=== PATIENT | female | born 1925 | race Caucasian/White ===

== ENCOUNTER → 2016-04-19 | Outpatient (CLI) | payer MEDICARE | END | disposition home or self-care (01) | LOC: NC 09:50 | PROVIDERS: ATTEND Family Medicine | DX: J44.9 Chronic obstructive pulmonary disease, unspecified (principal); I12.9 Hypertensive chronic kidney disease with stage 1 through stage 4 chronic kidney disease, or unspecified chronic kidney disease; N18.3 Chronic kidney disease, stage 3 (moderate) ==

== ENCOUNTER 2016-04-25 09:54 | Emergency (ER) | payer MEDICARE ==
--- NOTE | 2016-04-25 10:17 | ED.PDOC ---
History of Present Illness - General Chief Complaint: Respiratory Problem Stated Complaint: Fatigue/SOB Time Seen by Provider: 04/25/16 10:01 Source: patient, RN notes reviewed, Vital Signs reviewed, family Exam Limitations: no limitations - History of Present Illness Comments: Patient has not felt well for the past 2 weeks. Started with some chest heaviness and URI symptoms. 1 week ago she was seen in clinic and started on a Z -pack. Reports no change or improvement. This morning she had some right upper chest pain so her daughter brought her in to be evaluated. Lots of fatigue and poor PO intake. Dry cough with rare production of sputum. Dyspnea on exertion. Timing/Duration: constant - for past 2 weeks. Cough Quality/Degree: mild, dry cough Possible Cause: occasional episodes Improving Factors: rest Worsening Factors: movement Associated Symptoms: chest pain/soreness, cough, shortness of breath Respiratory Risk Factors: no cause identified Allergies/Adverse Reactions: Allergies NO KNOWN ALLERGY Allergy (Verified 10/30/15 19:48) Home Medications: Ambulatory Orders Aspirin 81 mg PO DAILY #0 08/30/12 Calcium Carbonate-Vitamin D [Calcium 600 + D 600-400 mg-Unit] 600 mg PO DAILY # 0 08/30/12 Furosemide [Lasix] 20 mg PO DAILY #30 tab 08/30/12 Lisinopril 10 mg PO DAILY #0 08/30/12 Potassium Chloride Tab [Slow-K] 8 meq PO DAILY #30 tab 08/30/12 Simvastatin 20 mg PO DAILY #0 08/30/12 ALPRAZolam [Xanax] 0.5 mg PO Q8H PRN 10/10/14 Alendronate Sodium [Fosamax] 70 mg PO WKLY 10/10/14 Budesonide Inhaler [Pulmicort Flexhaler] 2 puff INH DAILY 10/10/14 Multiple Vitamins W/ Minerals [Centrum Silver] 1 tab PO DAILY 11/08/14 Citalopram Hydrobromide [Celexa] 40 mg PO DAILY 06/02/15 Levofloxacin [Levaquin] 500 mg PO DAILY #6 tab 04/25/16 Review of Systems - Review of Systems Constitutional: States: malaise, weakness. Denies: chills, fever EENTM: States: no symptoms reported Respiratory: States: cough, short of breath, other - CARRERA. Denies: wheezing Cardiology: States: chest pain. Denies: edema, palpitations, syncope Gastrointestinal/Abdominal: States: no symptoms reported. Denies: abdominal pain, diarrhea, nausea, vomiting Musculoskeletal: States: no symptoms reported Skin: States: no symptoms reported Neurological: States: no symptoms reported Endocrine: States: no symptoms reported Past Medical History (General) - Patient Medical History Hx Seizures: No Hx Stroke: No Hx Dementia: Yes Hx Asthma: Yes Hx of COPD: Yes Hx Cardiac Disorders: Yes - Sees Dr. Veloz Hx Congestive Heart Failure: No Hx Pacemaker: No Hx Hypertension: Yes Hx Thyroid Disease: Yes - parathyroid Hx Diabetes: No Hx MRSA: No - Vaccination History Hx Tetanus, Diphtheria Vaccination: - unknown Hx Influenza Vaccination: Yes Hx Pneumococcal Vaccination: No - Social History Hx Tobacco Use: No Hx Alcohol Use: No Hx Substance Use: No Hx Substance Use Treatment: No Hx Depression: No Hx Physical Abuse: No Hx Emotional Abuse: No - Female History Patient : No Family Medical History - Family History Mother Family History: Unknown Living Status: Hx Cardiac Disease: Yes Physical Exam - Physical Exam General Appearance: Alert, Frail, No apparent distress Eye Exam: bilateral normal Neck: non-tender, full range of motion, supple, lymphadenopathy (R), lymphadenopathy (L) Respiratory: chest non-tender, decreased breath sounds Cardiovascular/Chest: regular rate, rhythm, no edema, no gallop, no JVD, no murmur Gastrointestinal/Abdominal: normal bowel sounds, non tender, soft, no organomegaly, no pulsatile mass Extremity: normal range of motion Neurologic: no motor/sensory deficits, alert, normal mood/affect, oriented x 3 Skin Exam: normal color, warm/dry Progress - Progress Progress: 04/25/16 12:16 Discussed essentially normal results with patient. She does have a slightly elevated WBC count and chest CT showed possible early RLL infiltrate. Will start a broader spectrum antibiotic and have follow up with PCP. Discussed that a lot of her inability/slow recovery may be due to her poor PO intake. Encouraged 2 Boost or Ensure shakes/day. Increase calories and fat in diet. - Results/Orders Results/Orders: Laboratory Tests 04/25/16 04/25/16 09:20 10:20 WBC 12.5 H RBC 4.82 Hgb 13.8 Hct 42.7 MCV 88.6 MCH 28.6 MCHC 32.3 L RDW 14.5 Plt Count 373 MPV 8.2 Absolute Neuts (auto) 9.30 H Absolute Lymphs (auto) 1.60 Absolute Monos (auto) 1.20 H Absolute Eos (auto) 0.10 Absolute Basos (auto) 0.10 Neutrophils % 74.9 Lymphocytes % 13.1 L Monocytes % 9.8 H Eosinophils % 1.0 Basophils % 1.2 D-Dimer, Quantitative 259 H* Sodium 138 Potassium 4.8 Chloride 101 Carbon Dioxide 29 Anion Gap 12.8 BUN 30 H Creatinine 1.05 BUN/Creatinine Ratio 28.6 H Random Glucose 107 H Serum Osmolality 282.3 Calcium 9.9 Total Bilirubin 0.7 AST 31 ALT 10 Alkaline Phosphatase 74 Creatine Kinase 33 CK-MB (CK-2) 1.4 CK-MB (CK-2) % Not Reportable Troponin I < 0.02 Serum Total Protein 7.7 Albumin 4.0 Globulin 3.7 H Albumin/Globulin Ratio 1.1 - EKG/XRAY/CT EKG: Sinus - Junctional Rhythm, no ST T wave changes, Unchanged from - 05/2015 Comments: No acute changes noted CT Ordered: Yes CT Interpretation Call Back: - No PE, pos. early infiltrate RLL Departure - Departure Clinical Impression: Cough, Fatigue Time of Disposition: 12:19 Disposition: Discharge to Home or Self Care Condition: Good Instructions: DI for Weight Loss, DI for Cough -- Adult Diet: other - Increase caloric intake Activity: increase activity as tolerated Referrals: Loco Sullivan MD [Primary Care Provider] - 1-2 Days Prescriptions: Levofloxacin [Levaquin] 500 mg PO DAILY #6 tab Home Medications: Ambulatory Orders Aspirin 81 mg PO DAILY #0 08/30/12 Calcium Carbonate-Vitamin D [Calcium 600 + D 600-400 mg-Unit] 600 mg PO DAILY # 0 08/30/12 Furosemide [Lasix] 20 mg PO DAILY #30 tab 08/30/12 Lisinopril 10 mg PO DAILY #0 08/30/12 Potassium Chloride Tab [Slow-K] 8 meq PO DAILY #30 tab 08/30/12 Simvastatin 20 mg PO DAILY #0 08/30/12 ALPRAZolam [Xanax] 0.5 mg PO Q8H PRN 10/10/14 Alendronate Sodium [Fosamax] 70 mg PO WKLY 10/10/14 Budesonide Inhaler [Pulmicort Flexhaler] 2 puff INH DAILY 10/10/14 Multiple Vitamins W/ Minerals [Centrum Silver] 1 tab PO DAILY 11/08/14 Citalopram Hydrobromide [Celexa] 40 mg PO DAILY 06/02/15 Levofloxacin [Levaquin] 500 mg PO DAILY #6 tab 04/25/16
--- NOTE | 2016-04-25 10:46 | RAD ---
EXAM DESCRIPTION: XR CHEST 2 VIEWS CLINICAL HISTORY: cough/fatigue/SOB COMPARISON: June 02, 2015 FINDINGS: Two-view chest x-ray shows cardiac silhouette to be enlarged without pulmonary vascular congestion. Mild tortuosity of the thoracic aorta. Large retrocardiac hiatal hernia and air-fluid level is again seen. The lungs are hyperinflated. No acute appearing infiltrate or consolidation is seen. Costophrenic angles are sharp. Levocurvature of the thoracolumbar junction is seen. Osseous structures are diffusely osteopenic. IMPRESSION: No radiographic evidence of acute cardiopulmonary disease in this emphysematous, senescent chest. No interval change. Large retrocardiac hiatal hernia. Electronically signed by: Sen Boyd MD 04/25/2016 10:44
--- NOTE | 2016-04-25 12:09 | CT ---
EXAM DESCRIPTION: CTA Chest CLINICAL HISTORY: CP/SOB/elevated D Dimer - r/o PE COMPARISON: None. TECHNIQUE: Postcontrast CT images of the chest are obtained using pulmonary embolism protocol. 3-D reconstructed images of the arterial vasculature are performed. CT scan done according to ALARA (As Low As Reasonably Achievable). FINDINGS: The heart is enlarged. Ascending thoracic aorta is mildly dilated measuring 4.2 cm. Scattered calcified plaque is seen. No aortic dissection. There is mild reflux of contrast into the hepatic veins. No filling defect or emboli are seen in the pulmonary arteries. No pathologically enlarged mediastinal, hilar, or axillary lymphadenopathy is seen. Lungs are normally aerated. Trace right pleural effusion is seen. Focal area of nodular parenchymal thickening in the right lung base measuring 12 x 16 mm seen. Pleural-based noncalcified 9 mm pulmonary nodule in the right lung base is also seen more laterally. Visualized upper abdomen shows no acute findings. Calcifications of the spleen is seen. Large retrocardiac hiatal hernia is noted. Mild disc degenerative changes of the spine are seen with moderate scoliosis. IMPRESSION: No radiographic evidence of pulmonary embolism. Large retrocardiac hiatal hernia seen. Mild aneurysmal dilatation of the ascending thoracic aorta measures 4.2 cm. Consider yearly imaging follow-up. Two focal areas of nodular parenchymal thickening in the right lower lobe are seen. This could represent developing infiltrates. Pulmonary nodules are consideration. Recommend follow-up CT imaging in 4-6 weeks. Electronically signed by: Sen Boyd MD 04/25/2016 12:08 PM INSPECTION MANAGER
[2016-04-25] MEDS ORDERED: levoFLOXacin 500 MG TAB PO ONE (12:16)
[2016-04-25] MEDS ORDERED: levoFLOXacin 500 MG TAB ONE (12:17)
[2016-04-25 12:38] VITALS: BP 124/68; TEMP 98.4; O2SAT 99
== END 2016-04-25 12:37 | disposition home or self-care (01) ==
LOC: ER 09:54
DX: R05 Cough (principal); R53.83 Other fatigue; J44.9 Chronic obstructive pulmonary disease, unspecified; I10 Essential (primary) hypertension; E20.9 Hypoparathyroidism, unspecified; Z79.82 Long term (current) use of aspirin; Z79.899 Other long term (current) drug therapy

== ENCOUNTER 2016-04-26 11:55 | Inpatient (IN) | payer MEDICARE ==
--- NOTE | 2016-04-26 13:13 | RAD ---
EXAM DESCRIPTION: Chest,1 View CLINICAL HISTORY: shortness of breath COMPARISON: None. IMPRESSION: Single AP portable upright view of the chest shows enlargement of the cardiac silhouette without pulmonary vascular congestion. Large retrocardiac hiatal hernia is again seen. Lungs are normally aerated and clear. Patchy nodular densities in the right lower chest seen on CT scan are not appreciated on plain film x-ray. No obvious pleural effusion or pneumothorax is seen. Electronically signed by: Sen Boyd MD 04/26/2016 1:[address] OPENINGS INSPECTOR
--- NOTE | 2016-04-26 14:19 | ED.PDOC ---
History of Present Illness - General Chief Complaint: Chest Pain/DC Stated Complaint: FAILED OUTPATIENT TREATMENT.CHEST DISCOMNFORT Time Seen by Provider: 04/26/16 12:51 Source: patient, RN notes reviewed, Vital Signs reviewed, family, old records - History of Present Illness Initial Comments: This 89 y/o female was sent to the ED from the clinic by her PCP, Dr. Sullivan. She has had chest pain over the past 2 weeks. She was initially reated with Azithromycin by her PCP. She came to the ED yesterday complaining of continuing symptoms. She was given a prescription for Levaquin 500 mg daily. She has not yet taken this medication. She has had severe fatitue, hoarseness and shortness of breath. Timing/Duration: other - 2 weeks Severity: moderate, severe Improving Factors: nothing Worsening Factors: nothing Associated Symptoms: chest pain, cough, malaise, shortness of breath, weakness Allergies/Adverse Reactions: Allergies NO KNOWN ALLERGY Allergy (Verified 10/30/15 19:48) Home Medications: Ambulatory Orders Aspirin 81 mg PO DAILY #0 08/30/12 Calcium Carbonate-Vitamin D [Calcium 600 + D 600-400 mg-Unit] 600 mg PO DAILY # 0 08/30/12 Furosemide [Lasix] 20 mg PO DAILY #30 tab 08/30/12 Lisinopril 10 mg PO DAILY #0 08/30/12 Potassium Chloride Tab [Slow-K] 8 meq PO DAILY #30 tab 08/30/12 Simvastatin 20 mg PO DAILY #0 08/30/12 ALPRAZolam [Xanax] 0.5 mg PO Q8H PRN 10/10/14 Alendronate Sodium [Fosamax] 70 mg PO WKLY 10/10/14 Budesonide Inhaler [Pulmicort Flexhaler] 2 puff INH DAILY 10/10/14 Multiple Vitamins W/ Minerals [Centrum Silver] 1 tab PO DAILY 11/08/14 Citalopram Hydrobromide [Celexa] 40 mg PO DAILY 06/02/15 Levofloxacin [Levaquin] 500 mg PO DAILY #6 tab 04/25/16 Review of Systems - Review of Systems Constitutional: States: malaise, weakness EENTM: States: other - hoarseness Respiratory: States: cough, short of breath, wheezing Cardiology: States: chest pain, palpitations Gastrointestinal/Abdominal: States: no symptoms reported Genitourinary: States: no symptoms reported Musculoskeletal: States: no symptoms reported Skin: States: no symptoms reported Neurological: States: weakness Endocrine: States: no symptoms reported Hematologic/Lymphatic: States: no symptoms reported All other Systems: Reviewed and Negative Past Medical History (General) - Patient Medical History Hx Seizures: No Hx Stroke: No Hx Dementia: Yes Hx Asthma: Yes Hx of COPD: Yes Hx Cardiac Disorders: Yes - Sees Dr. Veloz Hx Congestive Heart Failure: No Hx Pacemaker: No Hx Hypertension: Yes Hx Thyroid Disease: Yes - parathyroid Hx Diabetes: No Hx Gastroesophageal Reflux: No Hx Renal Disease: No Hx Cancer: No Hx of HIV: No Hx Hepatitis C: No Hx MRSA: No - Vaccination History Hx Tetanus, Diphtheria Vaccination: No Hx Influenza Vaccination: Yes Hx Pneumococcal Vaccination: Yes - Social History Hx Tobacco Use: No Hx Alcohol Use: No Hx Substance Use: No Hx Substance Use Treatment: No Hx Depression: No Hx Physical Abuse: No Hx Emotional Abuse: No Hx Suspected Abuse: No - Female History Patient : No Family Medical History - Family History Mother Family History: Unknown Living Status: Hx Cardiac Disease: Yes Physical Exam - Physical Exam General Appearance: Alert, No apparent distress Ears, Nose, Throat: hearing grossly normal, normal ENT inspection Respiratory: lungs clear, normal breath sounds, no respiratory distress, no accessory muscle use Cardiovascular/Chest: irregularly irregular Gastrointestinal/Abdominal: normal bowel sounds, non tender, soft, no organomegaly Extremity: normal range of motion, non-tender, normal inspection Neurologic: alert, normal mood/affect, oriented x 3 Skin Exam: normal color, warm/dry Progress - Progress Progress: 04/26/16 14:37 CT of yesterday showed two pulmonary nodules in the right lower lobe which could be the start of a pneumonia. 04/26/16 14:43 - Results/Orders Results/Orders: 04/26/16 04/26/16 12:03 12:19 Temperature 97.7 F Pulse Rate [ 93 H MONITOR] Respiratory 22 22 Rate Blood Pressure 130/102 [Right Arm] O2 Sat by Pulse 94 L Oximetry 04/26/16 12:15 EKG STAT 04/26/16 13:50 INFLUENZA A & B BY PCR Stat 04/26/16 Lunch Regular Diet Laboratory Results WBC 9.7 K/mm3 (4.8-10.8) 04/26/16 12:45 RBC 4.79 M/mm3 (4.20-5.40) 04/26/16 12:45 Hgb 14.0 gm/dL (12.0-16.0) 04/26/16 12:45 Hct 42.5 % (36.0-47.0) 04/26/16 12:45 MCV 88.6 fl (81.0-99.0) 04/26/16 12:45 MCH 29.1 pg (27.0-31.0) 04/26/16 12:45 MCHC 32.9 g/dL (33.0-37.0) L 04/26/16 12:45 RDW 14.1 % (11.5-14.5) 04/26/16 12:45 Plt Count 377 K/mm3 (130-400) 04/26/16 12:45 MPV 8.7 fl (7.40-10.4) 04/26/16 12:45 Absolute Neuts (auto) 6.60 K/uL (1.8-6.8) 04/26/16 12:45 Absolute Lymphs (auto) 2.00 K/uL (1.0-3.4) 04/26/16 12:45 Absolute Monos (auto) 0.90 K/uL (0.2-0.8) H 04/26/16 12:45 Absolute Eos (auto) 0.20 K/uL (0.0-0.4) 04/26/16 12:45 Absolute Basos (auto) 0.10 K/uL (0.0-0.1) 04/26/16 12:45 Neutrophils % 67.5 % (42.0-78.0) 04/26/16 12:45 Lymphocytes % 20.6 % (20.0-50.0) 04/26/16 12:45 Monocytes % 9.0 % (2.0-9.0) 04/26/16 12:45 Eosinophils % 1.9 % (1.0-5.0) 04/26/16 12:45 Basophils % 1.0 % (0.0-2.0) 04/26/16 12:45 PT 12.9 SECONDS (9.4-12.5) H 04/26/16 12:45 INR 1.140 04/26/16 12:45 PTT (SP) 35.5 SECONDS (25.1-36.5) 04/26/16 12:45 D-Dimer, Quantitative < 230 ng/mL (0-230) 04/26/16 12:45 Sodium 139 mmol/L (135-145) 04/26/16 12:45 Potassium 4.8 mmol/L (3.6-5.0) 04/26/16 12:45 Chloride 100 mmol/L (101-111) L 04/26/16 12:45 Carbon Dioxide 30 mmol/L (21-31) 04/26/16 12:45 Anion Gap 13.8 (12-18) 04/26/16 12:45 BUN 27 mg/dL (7-18) H 04/26/16 12:45 Creatinine 1.19 mg/dL (0.6-1.3) 04/26/16 12:45 BUN/Creatinine Ratio 22.7 (10-20) H 04/26/16 12:45 Random Glucose 101 mg/dL (70-105) 04/26/16 12:45 Serum Osmolality 282.8 mOsm/L (275-295) 04/26/16 12:45 Calcium 9.9 mg/dL (8.4-10.2) 04/26/16 12:45 Magnesium 2.1 mg/dL (1.8-2.5) 04/26/16 12:45 Creatine Kinase 41 IU/L (26-140) 04/26/16 12:45 CK-MB (CK-2) 1.9 ng/mL (0.0-4.4) 04/26/16 12:45 CK-MB (CK-2) % Not Reportable 04/26/16 12:45 Troponin I < 0.02 ng/mL (0.01-0.05) 04/26/16 12:45 B-Natriuretic Peptide 222.0 pg/ml (0-100) H* 04/26/16 12:45 Urine Color Yellow (Yellow) 04/26/16 13:58 Urine Appearance Clear (Clear) 04/26/16 13:58 Urine pH 7.0 (4.5-7.8) 04/26/16 13:58 Ur Specific [place] 1.020 (1.005-1.030) 04/26/16 13:58 Urine Protein Negative mg/dL 04/26/16 13:58 Urine Glucose (UA) Negative mg/dL (Negative) 04/26/16 13:58 Urine Ketones Negative mg/dL (NEGATIVE) 04/26/16 13:58 Urine Blood Negative (Negative) 04/26/16 13:58 Urine Nitrite Negative 04/26/16 13:58 Urine Bilirubin Negative (NEGATIVE) 04/26/16 13:58 Urine Urobilinogen 0.2 mg/dL (0.2-1.0) 04/26/16 13:58 Ur Leukocyte Esterase Negative (Negative) 04/26/16 13:58 Urine RBC 0 /hpf 04/26/16 13:58 Urine WBC 0-1 /hpf 04/26/16 13:58 Ur Epithelial Cells 0-1 /hpf 04/26/16 13:58 Urine Bacteria Rare 04/26/16 13:58 - EKG/XRAY/CT EKG: Atrial, Fibrillation, no ST T wave changes, Changed from - 06/02/2015--no afib at that time, junctional rhythm. Comments: LAD, Prolonged QT--Afib XRAY: chest Xray Comments: No acute process CT Ordered: No CT Interpretation Call Back: No Departure - Departure Clinical Impression: Atrial fibrillation with normal ventricular rate, Pulmonary nodule seen on imaging study, Obstructive chronic bronchitis with exacerbation Pneumonia Qualifiers: Pneumonia type: due to unspecified organism Laterality: right Lung location: lower lobe of lung Qualifier Code: (J18.9) Pneumonia, unspecified organism Time of Disposition: 14:54 Disposition: Admit Patient Referrals: Loco Sullivan MD [Primary Care Provider] - 1-2 Weeks Home Medications: Ambulatory Orders Aspirin 81 mg PO DAILY #0 08/30/12 Calcium Carbonate-Vitamin D [Calcium 600 + D 600-400 mg-Unit] 600 mg PO DAILY # 0 08/30/12 Furosemide [Lasix] 20 mg PO DAILY #30 tab 08/30/12 Lisinopril 10 mg PO DAILY #0 08/30/12 Potassium Chloride Tab [Slow-K] 8 meq PO DAILY #30 tab 08/30/12 Simvastatin 20 mg PO DAILY #0 08/30/12 ALPRAZolam [Xanax] 0.5 mg PO Q8H PRN 10/10/14 Alendronate Sodium [Fosamax] 70 mg PO WKLY 10/10/14 Budesonide Inhaler [Pulmicort Flexhaler] 2 puff INH DAILY 10/10/14 Multiple Vitamins W/ Minerals [Centrum Silver] 1 tab PO DAILY 11/08/14 Citalopram Hydrobromide [Celexa] 40 mg PO DAILY 06/02/15 Levofloxacin [Levaquin] 500 mg PO DAILY #6 tab 04/25/16 Decision To Admit - Decistion To Admit Decision to Admit Reason: Admit from ER Decision to Admit Date: 04/26/16 Decision to Admit Time: 14:50
[2016-04-26] MEDS ORDERED: cefTRIAXone SODIUM 1 GM in SODIUM CHL 0.9% 50ML MIN-BAG+ 50 ML IVPB ONE (14:50)
[2016-04-26] MEDS ORDERED: SODIUM CHL 0.9% 50ML MIN-BAG+ 50 ML IVPB ONE (15:14)
[2016-04-26] MEDS ORDERED: cefTRIAXone SODIUM 1 GM VIAL ONE (15:14)
--- NOTE | 2016-04-26 15:23 | HP ---
HISTORY OF PRESENT ILLNESS: This 89 year_old white female is admitted to the hospital via the Emergency Room from Dr. Sullivan's office. She has not been feeling well at all now for at least 2 weeks and beyond. Starting 2 weeks ago she started getting a tickle in her throat which progressed to hoarseness in her voice. This resulted in increasing cough with associated chest pain. History of emphysema though she has never smoked. She has been eating and drinking less and had vomiting earlier this morning. Her weight 2 years ago was 160 and now it is approximately 129 pounds. Significant weight loss evident. She has seen the nurse practitioner 2 weeks ago and was started on a Z _Pak and given a Medrol dose as well. She subsequently was seen in the Emergency Room last evening. She had saturations down to 91%. No fever was evident. She had some chest discomfort. CT scan was performed because of a slightly elevated D_dimer and it did show some evidence of some right lower lobe infiltrative processes. The patient was seen again in Dr. Sullivan's office today and was referred to the Emergency Room to be evaluated and then placed in the hospital for continued treatment because of her feeling worse step by step even though having been started on an outpatient regime. She vomited earlier today as already mentioned. She is quite anxious. She is found to have chronic atrial fibrillation. Very weak. PAST MEDICAL HISTORY: 1. Atrial fibrillation. PAST SURGICAL HISTORY: None. CURRENT MEDICATIONS: Please refer to nurses' list of home medications which has been verified. ALLERGIES: ALBUTEROL WHICH CAUSES HER HEART TO GO FAST. PHYSICIANS: Dr. Sullivan in the [facility] in [place] and Dr. Veloz, cardiology in [place]. FAMILY HISTORY: Positive for rheumatoid arthritis. 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 She has never smoked but has been told that she has emphysema. REVIEW OF SYSTEMS: Fairly significant weight loss of about 30 pounds in the last 2 years. No significant fever or chills. HEENT: No significant hearing or vision disturbances. LUNGS: Occasional cough resulting in some chest discomfort. She has some diminished breath sounds. HEART: Tones are somewhat distant with no significant murmurs. ABDOMEN: Generally soft with no organomegaly, masses or tenderness. Some nausea was noted earlier today. EXTREMITIES: No significant edema. NEUROLOGIC: No focal neurological deficits noted. The patient appears to be somewhat depressed in her affect. PHYSICAL EXAMINATION: VITAL SIGNS: Afebrile, pulse initially 102 down to 74, blood pressure 149/75, respirations 20, pulse oximetry 94% up to 97% room air. Weight 58.8 kilos. GENERAL: The patient is awake, alert and oriented, and communicative, though somewhat slow in her affect. She states that she is very weak and does not know why she has been getting weaker and more ill as time goes by. Her voice is slightly hoarse at times. NECK: Supple. CHEST: Lungs have some diminished breath sounds, otherwise fairly clear. CARDIOVASCULAR: Tones slightly irregular with what appears to be an atrial fibrillation pattern. ABDOMEN: Generally soft with some slight epigastric discomfort on deep palpation. Bowel tones are present. EXTREMITIES: Fairly well formed. NEUROLOGIC: No focal neurological deficits. The patient is otherwise awake, alert and oriented and communicative. LABORATORY: White count 9,700 with hemoglobin 14. INR of 1.14. Repeat D- dimer is under 230. Chemistry shows beta natriuretic peptide of 222 and potassium 4.8, BUN 27, creatinine 1.19, glucose 101, magnesium 2.1. Troponin is zero. Urinalysis is generally clean. Blood cultures and urine cultures are pending. Chest x-ray fails to reveal any significant abnormalities but on CTA of chest last evening, there was no evidence of pulmonary embolism but she had several spots of what could be inflammatory infiltrates in the right lower lobe suggesting a possible early pneumonia process currently being treated. ASSESSMENT: 1. Right lower lobe pneumonia probably community acquired noted on CT scan with radiographic evidence. 2. Chronic obstructive pulmonary disease even though she has never smoked. 3. Chronic anxiety and depression. 4. Mild hypoxia down to 91% in the clinic. 5. History of chest pain with repeat followup of enzymes. 6. Chronic atrial fibrillation at this time being followed by Dr. Veloz who has not placed her on anticoagulants for rate control necessary up to this point. 7. History of hiatal hernia. 8. Ascending aortic aneurysm of 4.2 cm. 9. Chronic weakness worsening. PLAN: Will increase activity level and have Physical Therapy evaluate for safety of ambulation. Will do some ambulation studies to check for oxygen desaturation. Continue with Rocephin and Azithromycin IV and p.o. respectfully. Continue to evaluate on a routine basis. Get a gallbladder ultrasound because of the significant weight loss with decreased caloric intake with associated nausea and vomiting. Close followup necessary. #[id number] MTDD
[2016-04-26] MEDS ORDERED: MAGNESIUM HYDROXIDE 30 ML UD PO PRN (18:56)
[2016-04-26] MEDS ORDERED: IBUPROFEN 400 MG TAB PO PRN (18:56)
[2016-04-26] MEDS ORDERED: ACETAMINOPHEN 325 MG TAB PO PRN (18:56)
[2016-04-26] MEDS ORDERED: ONDANSETRON INJ 4 MG/2 ML VIAL IV PRN (18:56)
[2016-04-26] MEDS ORDERED: HYDROcodone 5MG/APAP 325MG 1 EA TAB PO PRN (18:56)
[2016-04-26] MEDS ORDERED: IV SET AND CAP CHANGE INJ INJ SCH (19:00)
[2016-04-26] MEDS: AZITHROMYCIN 250 MG TAB PO SCH (19:33)
[2016-04-26] MEDS: SODIUM CHLORIDE 0.9% 1000ML 1,000 ML IVS PRN (20:37)
[2016-04-26] MEDS: SODIUM CHLORIDE 0.9% (FLUSH) 10 ML SYG IV PRN (20:38)
[2016-04-26] MEDS: ALPRAZolam 0.25 MG TAB PO PRN (20:55)
[2016-04-27] MEDS ORDERED: cefTRIAXone SODIUM 1 GM VIAL ONE ×3 (05:11→14:44)
[2016-04-27] MEDS ORDERED: SODIUM CHL 0.9% 50ML MIN-BAG+ 50 ML IVPB ONE ×3 (05:12→14:44)
[2016-04-27] MEDS: OMEPRAZOLE CAP 20 MG CAP PO SCH (05:44)
[2016-04-27] MEDS: cefTRIAXone SODIUM 1 GM in SODIUM CHL 0.9% 50ML MIN-BAG+ 50 ML IVPB SCH ×2 (06:30→18:30)
[2016-04-27] MEDS ORDERED: ASPIRIN (CHEWABLE) 81 MG TAB ONE (07:14)
[2016-04-27] MEDS ORDERED: SODIUM CHLORIDE 0.9% 10 ML VIAL IV PRN (07:14)
[2016-04-27] MEDS ORDERED: LISINOPRIL 10 MG TAB ONE (07:15)
--- NOTE | 2016-04-27 07:26 | RAD ---
EXAM DESCRIPTION: Chest,2 Views CLINICAL HISTORY: 89 years Female, Pneumonia COMPARISON: April 26, 2016 FINDINGS: There is a moderate size hiatal hernia. The cardiomediastinal silhouette is otherwise unremarkable. The lungs are hyperinflated, but there is no airspace consolidation or pleural effusion. There is no pneumothorax or acute fracture. There is no radiographically apparent lung nodule. IMPRESSION: Pulmonary hyperinflation, and the possibility of COPD should be considered. No acute intrathoracic abnormality or other significant interval change. Moderate size hiatal hernia. Electronically signed by: Chace Lucia MD 04/27/2016 7:25 AM ANIMAL CARE GIVER
[2016-04-27] MEDS: SODIUM CHLORIDE 0.9% 1000ML 1,000 ML IVS PRN (08:32)
[2016-04-27] MEDS: ASPIRIN (CHEWABLE) 81 MG TAB PO SCH (08:35)
[2016-04-27] MEDS: ALPRAZolam 0.25 MG TAB PO PRN (08:41)
[2016-04-27] MEDS: BUDESONIDE INH SCH (08:54)
[2016-04-27] MEDS ORDERED: LISINOPRIL 10 MG TAB PO SCH (09:00)
[2016-04-27] MEDS ORDERED: ALPRAZolam 0.25 MG TAB PO ONE (11:39)
[2016-04-27] MEDS: ESCITALOPRAM 10 MG TAB PO SCH (11:47)
[2016-04-27] MEDS: methylPREDNISolone SODIUM SUC 125 MG/2 ML VIAL IV SCH ×2 (11:47→20:00)
[2016-04-27] MEDS: ENOXAPARIN SODIUM 40 MG/0.4 ML SYG SUBCU SCH (11:58)
--- NOTE | 2016-04-27 14:39 | US ---
EXAM DESCRIPTION: Gall Bladder CLINICAL HISTORY: vomiting, weight loss COMPARISON: None available. FINDINGS: This report is based on the receipt of 36 ultrasound images. Aorta: Not well evaluated IVC: Visualized portions normal. Ascites: None. Pancreas: Partially obscured by overlying bowel gas but visualized portions normal. Liver: No mass, hepatomegaly or biliary duct dilation. Gallbladder/Common Duct: No stones, wall thickening, pericholecystic fluid or common duct dilation. Right Kidney: Not well visualized IMPRESSION: Negative exam, slightly limited as described. Electronically signed by: Chace Lucia MD 04/27/2016 2:38 PM ZOO DIRECTOR
[2016-04-27] MEDS ORDERED: guaiFENesin ER TAB 600 MG TAB ONE (18:03)
[2016-04-27] MEDS: AZITHROMYCIN 250 MG TAB PO SCH (18:45)
[2016-04-27] MEDS: guaiFENesin ER TAB 600 MG TAB PO SCH (21:27)
[2016-04-27] MEDS: SODIUM CHLORIDE 0.9% (FLUSH) 10 ML SYG IV SCH (21:28)
[2016-04-28] MEDS: methylPREDNISolone SODIUM SUC 125 MG/2 ML VIAL IV SCH ×2 (03:56→11:46)
[2016-04-28] MEDS: SODIUM CHLORIDE 0.9% (FLUSH) 10 ML SYG IV PRN ×3 (03:57→23:32)
[2016-04-28] MEDS ORDERED: FUROSEMIDE 40 MG TAB ONE (05:27)
[2016-04-28] MEDS ORDERED: SODIUM CHL 0.9% 50ML MIN-BAG+ 50 ML IVPB ONE ×3 (05:27→19:39)
[2016-04-28] MEDS ORDERED: cefTRIAXone SODIUM 1 GM VIAL ONE ×3 (05:28→19:39)
[2016-04-28] MEDS: OMEPRAZOLE CAP 20 MG CAP PO SCH (06:42)
[2016-04-28] MEDS: cefTRIAXone SODIUM 1 GM in SODIUM CHL 0.9% 50ML MIN-BAG+ 50 ML IVPB SCH ×2 (06:42→18:27)
[2016-04-28] MEDS: ALPRAZolam 0.25 MG TAB PO PRN (08:21)
[2016-04-28] MEDS: SIMVASTATIN 20 MG TAB PO SCH (09:20)
[2016-04-28] MEDS: FUROSEMIDE 40 MG TAB PO SCH (09:20)
[2016-04-28] MEDS: POTASSIUM CHLORIDE 8 MEQ TAB PO SCH (09:20)
[2016-04-28] MEDS: guaiFENesin ER TAB 600 MG TAB PO SCH ×2 (09:20→20:37)
[2016-04-28] MEDS: ASPIRIN (CHEWABLE) 81 MG TAB PO SCH (09:21)
[2016-04-28] MEDS: SODIUM CHLORIDE 0.9% (FLUSH) 10 ML SYG IV SCH ×2 (09:21→20:37)
[2016-04-28] MEDS: ESCITALOPRAM 10 MG TAB PO SCH (09:21)
[2016-04-28] MEDS: LISINOPRIL 10 MG TAB PO SCH (09:21)
[2016-04-28] MEDS: BUDESONIDE INH SCH (09:35)
--- NOTE | 2016-04-28 09:35 | PN ---
SUPERVISING PHYSICIAN: Neftaly Sullivan MD DATE: 04/27/16 SUBJECTIVE: The patient is sitting up in a chair in her hospital room. She is very tearful. She complains of her heart fluttering in her chest. She also says she feels very depressed and sad. She denies any shortness of breath, chest pain, nausea, vomiting, or diarrhea. OBJECTIVE: VITAL SIGNS: Afebrile. Pulse around 90 beats per minute. Blood pressure 124/57. Respiratory rate 20. O2 saturation 94%. LUNGS: A few scattered rhonchi throughout, but very mild. CARDIAC: Bradycardic rate, slightly irregular rhythm. Atrial fibrillation on the environmental monitoring specialist. ABDOMEN: Soft, nontender, nondistended. Bowel sounds are positive. EXTREMITIES: No cyanosis, clubbing or edema. NEUROLOGIC: Awake, alert and oriented times three. She is very tearful and very depressed. LABORATORY: CBC is basically within normal limits except for monocytes 10.5. BUN 26, creatinine 1.05. Cardiac enzymes with her routine AM lab are within normal limits. Preliminary blood cultures show no growth. Flu swab is negative. Chest x-ray shows pulmonary hyperinflation and the possibility of chronic obstructive pulmonary disease should be considered with a moderate sized hiatal hernia. Her gallbladder ultrasound is basically a negative exam. All other labs and films have been reviewed via the EMR. ASSESSMENT: 1. Right lower lobe pneumonia as evidenced per CT scan. 2. Chronic obstructive pulmonary disease. 3. Chronic anxiety and depression. 4. Mild hypoxia, slowly resolving. 5. History of chest pain with negative cardiac enzymes. 6. Chronic atrial fibrillation at this time being followed by Dr. Veloz who has not placed her on anticoagulants for rate control necessary up to this point. 7. History of hiatal hernia. 8. Ascending aortic aneurysm of 4.2 cm. 9. Chronic weakness, worsened. PLAN: We will continue present supportive care including continuing her present antibiotics. I have added some additional bronchial hygiene and continuing to encourage good pulmonary toilet. We will skip her labs tomorrow, but will repeat her x-ray. I have also given her some Solu-Medrol as well as some Mucinex. Since I have given her some steroids, I will check a blood sugar in the morning. I have advanced her diet after her sonogram. I have also changed her Celexa to some Lexapro, and maybe that will help with the depressive symptoms as well as she is presently on a benzodiazepine. Lovenox for DVT prophylaxis as well as she is on a PPI for ulcer prophylaxis. We will continue to monitor the patient closely and followup as needed. #[id number] [place]
[2016-04-28] MEDS: ENOXAPARIN SODIUM 40 MG/0.4 ML SYG SUBCU SCH (11:46)
[2016-04-28] MEDS ORDERED: CYANOCOBALAMIN INJ 1,000 MCG/ML INJ IM ONE (12:07)
--- NOTE | 2016-04-28 13:46 | PN ---
SUPERVISING PHYSICIAN: Neftaly Sullivan MD DATE: 04/28/16 SUBJECTIVE: The patient is sitting up in her bed. She is eating. She denies any chest pain, shortness of breath, abdominal pain, nausea or vomiting. She does complain of continued weakness and depression. She says she just feels so "down and out." OBJECTIVE: VITAL SIGNS: Afebrile. Heart rate 89. Blood pressure 129/63. Respiratory rate 18. O2 saturation 94% on room air. LUNGS: Scattered rhonchi throughout. CARDIAC: Slightly irregular rhythm, regular rate. ABDOMEN: Soft, nontender, nondistended. Bowel sounds are positive. EXTREMITIES: No cyanosis, clubbing or edema. NEUROLOGIC: Alert and oriented times three. She is still somewhat tearful, but less depressed than yesterday. LABORATORY: There are no labs or films to report today. Her ambulatory study shows the patient walks with physical therapy with no distress. Her oxygen saturation after ambulation was 96%. The patient required no assistance to sit on the side of the bed and ambulated 214 feet with rolling walker. All other labs and films have been reviewed via the EMR. ASSESSMENT: 1. Right lower lobe pneumonia as evidenced per CT scan. 2. Chronic obstructive pulmonary disease. 3. Chronic anxiety and depression. 4. Mild hypoxia, resolved. 5. History of chest pain with negative cardiac enzymes. 6. Chronic atrial fibrillation, followed by Dr. Veloz. 7. History of hiatal hernia. 8. Ascending aortic aneurysm of 4.2 cm. 9. Chronic weakness. PLAN: We will continue present supportive care. Encourage good pulmonary toilet. I have decreased her steroids and will switch her over to p.o. steroids tomorrow. I have also repeated her labs and chest x-ray in the morning. Physical therapy deems that she should be safe to go home and we will most likely send her home tomorrow with home health. We will continue to monitor the patient closely and follow as needed. Dr. Sullivan is the collaborating physician and available for consultation. #[id number] [facility]
[2016-04-28] MEDS ORDERED: methylPREDNISolone SODIUM SUC 40 MG/ML VIAL ONE (15:28)
[2016-04-28] MEDS: methylPREDNISolone SODIUM SUC 40 MG/ML VIAL IV SCH ×2 (18:26→23:32)
[2016-04-28] MEDS: AZITHROMYCIN 250 MG TAB PO SCH (18:27)
[2016-04-29] MEDS: ALPRAZolam 0.25 MG TAB PO PRN (02:11)
[2016-04-29] MEDS: methylPREDNISolone SODIUM SUC 40 MG/ML VIAL IV SCH (05:35)
[2016-04-29] MEDS: SODIUM CHLORIDE 0.9% (FLUSH) 10 ML SYG IV PRN (05:35)
[2016-04-29] MEDS: OMEPRAZOLE CAP 20 MG CAP PO SCH (06:08)
--- NOTE | 2016-04-29 06:40 | RAD ---
Clinical History : pna , MAIN Exam : PA and lateral views of the chest 04/29/2016 5:00 AM MANAGER CONCRETE Comparisons : PA and lateral views of the chest April 27, 2016 Findings : Moderate emphysematous changes are noted throughout the lungs bilaterally. There is flattening of the diaphragms . The lungs are clear without focal consolidation or pleural effusion. The heart is normal in size. The mediastinal contours are normal in appearance. There is a moderate-sized hiatal hernia. The thoracic spine is age appropriate. The shoulders are unremarkable. Limited evaluation of the upper abdomen demonstrates no gross abnormalities. Impression: 1. No acute cardiopulmonary disease (stable appearing chest). 2. Stable emphysema. 3. Moderate hiatal hernia. Electronically signed by: Rafi Markham MD 04/29/2016 6:39 AM MANAGER CONCRETE
[2016-04-29] MEDS: cefTRIAXone SODIUM 1 GM in SODIUM CHL 0.9% 50ML MIN-BAG+ 50 ML IVPB SCH (06:46)
[2016-04-29] MEDS ORDERED: predniSONE 10 MG TAB PO ONE (07:47)
[2016-04-29] MEDS: BUDESONIDE INH SCH (08:32)
[2016-04-29] MEDS: FUROSEMIDE 40 MG TAB PO SCH (08:42)
[2016-04-29] MEDS: ASPIRIN (CHEWABLE) 81 MG TAB PO SCH (08:42)
[2016-04-29] MEDS: LISINOPRIL 10 MG TAB PO SCH (08:42)
[2016-04-29] MEDS: POTASSIUM CHLORIDE 8 MEQ TAB PO SCH (08:43)
[2016-04-29] MEDS: guaiFENesin ER TAB 600 MG TAB PO SCH (08:43)
[2016-04-29] MEDS: SODIUM CHLORIDE 0.9% (FLUSH) 10 ML SYG IV SCH (08:45)
[2016-04-29] MEDS: SIMVASTATIN 20 MG TAB PO SCH (08:45)
[2016-04-29] MEDS: ESCITALOPRAM 10 MG TAB PO SCH (08:45)
[2016-04-29 10:34] VITALS: BP 110/70; TEMP 98.5; O2SAT 95
[2016-04-29] MEDS: ENOXAPARIN SODIUM 40 MG/0.4 ML SYG SUBCU SCH (11:44)
[2016-05-04] MEDS ORDERED: ALENDRONATE SODIUM TAB 70 MG TAB PO SCH (09:00)
--- NOTE | 2016-05-11 09:39 | DS ---
SUPERVISING PHYSICIAN: TORSTEN BECKETT MD DISCHARGE DIAGNOSES: 1. Right lower lobe pneumonia as evidenced per CT scan, failed outpatient treatment. 2. Chronic obstructive pulmonary disease. 3. Chronic anxiety and depression. 4. Mild hypoxia, resolved. 5. History of chest pain with negative cardiac enzymes. 6. Chronic atrial fibrillation, followed by Dr. Veloz. 7. History of hiatal hernia. 8. Ascending aortic aneurysm of 4.2 cm. 9. Chronic weakness. HISTORY OF PRESENT ILLNESS: This is an 89 year-old female patient who was admitted to the hospital via the Emergency Room from Dr. Sullivan's office. She had not been feeling well for over 2 weeks and presented to his office with increased coughing and severe depression. She has a significant history of emphysema, although she has never smokes. She was actually not been eating very well and also had some vomiting earlier on the date of admission. She has lost approximately 30 pounds over the last 2 years. Two weeks prior to admission she had received a Z-Jag and a Medrol Dosepak. She had also been to the Emergency Room the evening prior to admission with saturations down to 91% . She did not have any fever. CT of the chest was performed because of a slightly elevated D-dimer and it showed evidence of a right lower lobe infiltrate. Dr. Sullivan sent her to the Emergency Room again and she was placed in the hospital for continued treatment as well as failing outpatient therapy. She also continued to be quite anxious and does have chronic atrial fibrillation. She was admitted to the hospital. She was given steroids and Rocephin as well as azithromycin. A gallbladder ultrasound was ordered due to her significant weight loss and it was found to be negative. Physical therapy was also consulted for strengthening and conditioning. Her depression has worsened significantly over the last few years. She has previously been on Celexa. Her Celexa was discontinued and Lexapro was started. Good bronchial hygiene was continued. Mucinex was also added.. Her laboratory had stabilized and her chest x-ray was clear. She will be discharged home today with Home Health/ DISCHARGE PLANS: The patient will be discharged home in stable condition. She is to resume her previous diet. She has been sent home with a steroid taper. Her Home Health Agency will followup with her. She has been given prescriptions for her new medications which are Lexapro, azithromycin and B-12. She has a followup with Lynsey Sam on 05/02/16. DISCHARGE MEDICATIONS: 1. Potassium. 2. Furosemide. 3. Aspirin. 4. Calcium plus vitamin D. 5. Lisinopril. 6. Simvastatin. 7. Pulmicort Flexhaler 8. Xanax. 9. Fosamax. 10. Multivitamins with minerals. 11. Lexapro. 12. Azithromycin. 13. Cyanocobalamin. Dr. Beckett is the collaborating physician and available for consultation. #[id number] [facility]
== END 2016-04-29 14:05 | disposition home health service (06) | DRG 190 ==
LOC: ER 11:55 → MS 15:22
PROVIDERS: ADMIT Emergency Medicine; ATTEND Nurse Practitioner Acute Care
DX: J44.0 Chronic obstructive pulmonary disease with (acute) lower respiratory infection (principal); J18.9 Pneumonia, unspecified organism; R09.02 Hypoxemia; F41.9 Anxiety disorder, unspecified; F32.9 Major depressive disorder, single episode, unspecified; I10 Essential (primary) hypertension; R07.9 Chest pain, unspecified; I48.2 Chronic atrial fibrillation; I71.2 Thoracic aortic aneurysm, without rupture; R53.1 Weakness; K44.9 Diaphragmatic hernia without obstruction or gangrene; Z79.82 Long term (current) use of aspirin; Z79.899 Other long term (current) drug therapy; Z66 Do not resuscitate

== ENCOUNTER 2016-05-05 09:25 | Observation (INO) | payer MEDICARE ==
--- NOTE | 2016-05-05 10:10 | RAD ---
EXAM DESCRIPTION: Chest,1 View CLINICAL HISTORY: chest pain COMPARISON: April 29, 2016 IMPRESSION: Single AP portable upright view of the chest shows cardiac silhouette to be enlarged without pulmonary vascular congestion. Large retrocardiac hiatal hernia is again seen. Lungs are hyperinflated without acute appearing infiltrate or consolidation. Scoliosis with levocurvature of the lower thoracic spine is again seen. No obvious pleural effusion or pneumothorax is seen. Electronically signed by: Sen Boyd MD 05/05/2016 10:09 AM PULLMAN CAR REPAIRER
[2016-05-05] MEDS ORDERED: SODIUM CHLORIDE 0.9% 1000ML 1,000 ML IVS ONE (10:59)
--- NOTE | 2016-05-05 11:31 | ED.PDOC ---
History of Present Illness - General Chief Complaint: Chest Pain/FL Stated Complaint: CHEST PAIN Time Seen by Provider: 05/05/16 10:16 Source: patient, family Exam Limitations: no limitations - History of Present Illness Initial Comments: 89 YEAR OLD FEMALE WHO WAS RECENTLY ADMITTED FOR RESPIRATORY INFECTION PRESENTS TO ED TODAY FOR INTERMITTENT EPISODES OF CHEST TIGHTNESS ASSOCIATED WITH GENERALIZED MALAISE. FAMILY AT BEDSIDE STATES THAT PT RECENTLY FINISHED ALL ABX AND WAS FEELING BETTER UNTIL LAST NIGHT. Timing/Duration: 24 hours Severity/Quality: tightness Location: central Chest Pain Radiation: no radiation Activities at Onset: none Improving Factors: nothing Worsening Factors: nothing Associated Symptoms: fatigue, weakness Allergies/Adverse Reactions: Allergies Albuterol Allergy (Severe, Verified 04/26/16 17:26) high anixety Home Medications: Ambulatory Orders Aspirin 81 mg PO DAILY #0 08/30/12 Calcium Carbonate-Vitamin D [Calcium 600 + D 600-400 mg-Unit] 600 mg PO DAILY # 0 08/30/12 Furosemide [Lasix] 20 mg PO DAILY #30 tab 08/30/12 Lisinopril 10 mg PO DAILY #0 08/30/12 Potassium Chloride Tab [Slow-K] 8 meq PO DAILY #30 tab 08/30/12 Simvastatin 20 mg PO DAILY #0 08/30/12 ALPRAZolam [Xanax] 0.5 mg PO Q8H PRN 10/10/14 Alendronate Sodium [Fosamax] 70 mg PO WKLY 10/10/14 Budesonide Inhaler [Pulmicort Flexhaler] 2 puff INH DAILY 10/10/14 Multiple Vitamins W/ Minerals [Centrum Silver] 1 tab PO DAILY 11/08/14 Azithromycin Tab [Zithromax Tab] 500 mg PO QD #2 tab 04/29/16 Cyanocobalamin Inj [Vitamin B-12 Inj] 1,000 mcg IM WKLY #4 inj 04/29/16 Escitalopram [Lexapro] 20 mg PO DAILY #30 tab 04/29/16 Review of Systems - Review of Systems Constitutional: Denies: chills, fever EENTM: Denies: ear pain, throat pain Respiratory: States: see HPI, cough, short of breath Cardiology: States: see HPI, chest pain. Denies: palpitations Gastrointestinal/Abdominal: Denies: abdominal pain, diarrhea, nausea Genitourinary: Denies: dysuria, frequency Musculoskeletal: Denies: joint pain, joint swelling Skin: Denies: change in color, lesions Neurological: States: weakness. Denies: headache, numbness, paresthesia Endocrine: States: no symptoms reported Hematologic/Lymphatic: States: no symptoms reported Past Medical History (General) - Patient Medical History Hx Seizures: No Hx Stroke: No Hx Dementia: Yes Hx Asthma: No Hx of COPD: Yes Hx Cardiac Disorders: Yes - Sees Dr. Veloz Hx Congestive Heart Failure: Yes Hx Pacemaker: No Hx Hypertension: Yes Hx Thyroid Disease: Yes - parathyroid Hx Diabetes: No Hx Gastroesophageal Reflux: No Hx Renal Disease: No Hx Cancer: No Hx of HIV: No Hx Hepatitis C: No Hx MRSA: Yes MRSA Source:: Wound - Vaccination History Hx Tetanus, Diphtheria Vaccination: No Hx Influenza Vaccination: Yes Hx Pneumococcal Vaccination: Yes - Social History Hx Tobacco Use: No Hx Alcohol Use: No Hx Substance Use: No Hx Substance Use Treatment: No Hx Depression: No Hx Physical Abuse: No Hx Emotional Abuse: No Hx Suspected Abuse: No - Female History Patient : No Family Medical History - Family History Mother Family History: Unknown Living Status: Hx Cardiac Disease: Yes Physical Exam - Physical Exam General Appearance: Alert, Comfortable, Frail Eyes, Ears, Nose, Throat Exam: PERRL/EOMI, normal ENT inspection Neck: non-tender, full range of motion Respiratory: lungs clear, normal breath sounds, no respiratory distress Cardiovascular/Chest: regular rate, rhythm, no murmur Gastrointestinal/Abdominal: normal bowel sounds, non tender, soft Extremity: normal range of motion, non-tender, normal inspection Neurologic: alert, normal mood/affect Skin Exam: normal color, warm/dry Progress - Progress Progress: 05/05/16 11:32 PT RESTING COMFORTABLY, DENIES CP AT THIS TIME. IV FLUIDS INITIATED FOR DEHYDRATION. PT AGREES TO ADMISSION FOR IV FLUIDS AND CARDIAC WORKUP. - EKG/XRAY/CT EKG: Skip - 52BPM, Sinus, RBBB - INCOMPLETE, NL AXIS, POOR R WAVE PROGRESSION Comments: NO ACUTE ST-T CHANGES WHEN COMPARED TO EKG FROM 04/26/16 Xray Comments: CXR: NO INFILTRATE PER RAD Departure - Departure Clinical Impression: Chest pain, Dehydration Time of Disposition: 11:37 Disposition: Admit Patient Condition: Fair Departure Forms: ED Discharge - Pt. Copy, Patient Portal Self Enrollment Home Medications: Ambulatory Orders Aspirin 81 mg PO DAILY #0 08/30/12 Calcium Carbonate-Vitamin D [Calcium 600 + D 600-400 mg-Unit] 600 mg PO DAILY # 0 08/30/12 Furosemide [Lasix] 20 mg PO DAILY #30 tab 08/30/12 Lisinopril 10 mg PO DAILY #0 08/30/12 Potassium Chloride Tab [Slow-K] 8 meq PO DAILY #30 tab 08/30/12 Simvastatin 20 mg PO DAILY #0 08/30/12 ALPRAZolam [Xanax] 0.5 mg PO Q8H PRN 10/10/14 Alendronate Sodium [Fosamax] 70 mg PO WKLY 10/10/14 Budesonide Inhaler [Pulmicort Flexhaler] 2 puff INH DAILY 10/10/14 Multiple Vitamins W/ Minerals [Centrum Silver] 1 tab PO DAILY 11/08/14 Azithromycin Tab [Zithromax Tab] 500 mg PO QD #2 tab 04/29/16 Cyanocobalamin Inj [Vitamin B-12 Inj] 1,000 mcg IM WKLY #4 inj 04/29/16 Escitalopram [Lexapro] 20 mg PO DAILY #30 tab 04/29/16 Decision To Admit - Decistion To Admit Decision to Admit Reason: Admit from ER Decision to Admit Date: 05/05/16 - CASE DISCUSSED WITH AZAM SANTIZO NP WHO AGREES TO ADMIT Decision to Admit Time: 11:37
--- NOTE | 2016-05-05 12:24 | HP ---
SUPERVISING PHYSICIAN: Evin Zamorano MD CHIEF COMPLAINT: Chest pain. HISTORY OF PRESENT ILLNESS: This is an 89-year-old, female patient who had been in the hospital last week for pneumonia. She presented to the Emergency Room today after she said had some chest pains last night and she just felt like "crap." She said she had felt better over the last couple of days, but she had intermittent episodes of chest tightness associated with generally feeling poorly. She had finished all her antibiotics and today the chest pain worsened to the point that she decided to come to the Emergency Room. She also has a significant history of anxiety and just had been recently changed from her Celexa to her Lexapro. PAST MEDICAL HISTORY: 1. Atrial fibrillation. PAST SURGICAL HISTORY: None. CURRENT MEDICATIONS: Per the EMR and awaiting verification. ALLERGIES: ALBUTEROL, WHICH CAUSES HER HEART TO RACE. FAMILY HISTORY: Positive for rheumatoid arthritis. CODE STATUS: DNR, SOCIAL HISTORY: She denies any tobacco use, ETOH, or illicit drug use. REVIEW OF SYSTEMS: GENERAL: She complains of weight loss of about 30 pounds in the last two years plus she complains of fatigue. She denies any fever or chills. HEENT: Denies sinus symptoms, ear pain, vision changes or sore throat. RESPIRATORY: Denies wheezing, coughing or shortness of breath. CARDIAC: As per history of present illness. GASTROINTESTINAL: Denies nausea, vomiting, diarrhea, constipation or abdominal pain. GENITOURINARY: Denies hematuria, dysuria or nocturia. NEUROLOGIC: Denies headache, dizziness, or seizures. PHYSICAL EXAMINATION: VITAL SIGNS: Afebrile. Heart rate 48 to 54. Blood pressure 128/57. Respiratory rate 16. O2 saturation 97% on room air. GENERAL: This is an 89-year-old, female patient who is laying in her hospital bed. She is in no acute distress. HEENT: Normocephalic, atraumatic. Pupils are equal and reactive. NECK: Supple without mass. No jugular venous distention. RESPIRATORY: Clear to auscultation bilaterally. CHEST: There is equal rise and fall of the chest with inspiration and expiration. CARDIAC: Bradycardic rate, slightly irregular rhythm. ABDOMEN: Soft, nondistended, nontender. Bowel sounds are positive. EXTREMITIES: No cyanosis, clubbing or edema. NEUROLOGIC: Awake, alert and oriented times three. LABORATORY: Urine is basically within normal limits except pH is 8.5. She has a small amount of urine blood. CBC shows WBCs 11.4, hemoglobin 14.7, hematocrit 45.9, platelet count 444. Sodium 136, potassium 4.7, chloride 94, carbon dioxide 31, BUN 43, creatinine 1.35. Magnesium 2.6, BNP 143, first two sets fo cardiac enzymes are negative. Chest x-ray shows lungs are hyperinflated without acute appearing infiltrate or consolidation and no obvious pleural effusion or pneumothorax seen. All other labs and films have been reviewed via the EMR. ASSESSMENT: 1. Chest pain, rule out myocardial infarction. 2. Dehydration. 3. Chronic obstructive pulmonary disease. 4. Chronic atrial fibrillation. 5. Anxiety and depression. 6. Chronic renal insufficiency. 7. Recent hospitalization for pneumonia, since resolved. PLAN: We will admit to the hospital and continue present supportive care. If her cardiac enzymes remain negative, she will most likely be discharged tomorrow. I have started her on Lovenox for DVT prophylaxis and Protonix for ulcer prophylaxis. I have continued her home medications including her Lexapro. I have also added Xanax for anxiety. I have given her some Xopenex as needed for breathing treatments and have encouraged good pulmonary hygiene. She received one liter of fluids in the Emergency Room and at this time, she does not look dehydrated, so we will check her labs in the morning for that. Otherwise, we will continue present supportive care and followup as needed. Dr. Zamorano is the collaborating and available for consultation. [facility][id number] [facility]
[2016-05-05] MEDS ORDERED: ASPIRIN TABLET 325 MG TAB PO ONE (13:53)
[2016-05-05] MEDS ORDERED: ACETAMINOPHEN 325 MG TAB PO PRN (17:45)
[2016-05-05] MEDS ORDERED: SODIUM CHLORIDE 0.9% (FLUSH) 10 ML SYG IV PRN (17:45)
[2016-05-05] MEDS ORDERED: MORPHINE SULFATE INJ 10 MG/ML VIAL IV PRN (17:45)
[2016-05-05] MEDS ORDERED: NITROGLYCERIN 0.4 MG 25 EA TAB SL PRN (17:45)
[2016-05-05] MEDS ORDERED: IV SET AND CAP CHANGE INJ INJ SCH (18:00)
[2016-05-05] MEDS ORDERED: CHLORDIAZEPOXIDE PO PRN (19:48)
[2016-05-05] MEDS ORDERED: CLIDINIUM PO PRN (19:48)
[2016-05-05] MEDS ORDERED: GLUCAGON INJ 1 MG VIAL SUBCU PRN (19:49)
[2016-05-05] MEDS ORDERED: DEXTROSE 50% 25 GM/50 ML SYG IV PRN (19:49)
[2016-05-05] MEDS ORDERED: LEVALBUTEROL NEBS 1.25 MG/3 ML VIAL NEB PRN (19:51)
[2016-05-05] MEDS ORDERED: ALPRAZolam 0.25 MG TAB PO PRN (19:53)
[2016-05-05] MEDS ORDERED: ENOXAPARIN SODIUM 40 MG/0.4 ML SYG SUBCU SCH (20:00)
[2016-05-05] MEDS: SODIUM CHLORIDE 0.9% (FLUSH) 10 ML SYG IV SCH (20:55)
[2016-05-05] MEDS ORDERED: INSULIN LISPRO 100 UNITS/ML PEN SUBCU SCH (21:00)
--- NOTE | 2016-05-05 22:50 | PCM.CORE ---
Physician DVT/VTE - Prophylaxis Currently: Patient already on anticoagulation therapy - Nurse DVT Assessment & Total Each Risk Factor Represents 3 Points: Age over 75 years DVT Assessment Score: 3 - 5 or more Very High Risk Treatments: Early Ambulation *, Sequential Compression Device
[2016-05-06] MEDS ORDERED: PANTOPRAZOLE SODIUM TAB 40 MG PO SCH (06:30)
[2016-05-06] MEDS ORDERED: SODIUM CHLORIDE 0.9% 10 ML VIAL IV PRN (08:41)
[2016-05-06] MEDS ORDERED: ASPIRIN TABLET 325 MG TAB PO SCH (09:00)
[2016-05-06] MEDS: SODIUM CHLORIDE 0.9% (FLUSH) 10 ML SYG IV SCH (09:32)
[2016-05-06] MEDS ORDERED: FUROSEMIDE 40 MG TAB PO SCH (10:15)
[2016-05-06] MEDS ORDERED: busPIRone HCL 5 MG TAB PO SCH (10:30)
[2016-05-06] MEDS ORDERED: LISINOPRIL 10 MG TAB PO SCH (10:30)
[2016-05-06] MEDS ORDERED: POTASSIUM CHLORIDE 8 MEQ TAB PO SCH (10:30)
[2016-05-06] MEDS ORDERED: ESCITALOPRAM 10 MG TAB PO SCH (10:30)
[2016-05-06] MEDS ORDERED: BUDESONIDE INH SCH (10:30)
[2016-05-06 12:12] VITALS: BP 109/64; TEMP 97; O2SAT 95
--- NOTE | 2016-05-06 16:51 | DS ---
SUPERVISING PHYSICIAN: Evin Zamorano M.D. DISCHARGE DIAGNOSIS: 1. Chest pain rule out myocardial infarction. Cardiac enzymes were negative. 2. Dehydration. 3. Chronic obstructive pulmonary disease. 4. Chronic atrial fibrillation. 5. Anxiety and depression. 6. Chronic renal insufficiency. 7. Recent hospitalization for pneumonia since resolved. HISTORY OF PRESENT ILLNESS: This is an 89 year-old female patient who was in the hospital last week for pneumonia. She originally came to the Emergency Room on the date of admission saying she had had some chest pain overnight and she just felt horrible. She had finished her antibiotics from her hospital stay and she had actually felt better the day prior to her chest pain, but today she had intermittent episodes of chest tightness associated with generally feeling poorly. She does have a significant history of anxiety and just recently changed from her Celexa to Lexapro. On her hospital followup, BuSpar was added to help with her anxiety. HOSPITAL COURSE: The patient was placed in Observation. Serial cardiac enzymes were drawn and they were all negative. She was given gentle hydration with IV fluids. She responded well to the treatment. She continued to be extremely depressed and she had asked if she could be admitted to [facility]. Delma Hernandez, our Glue Wheel Operator, initiated that request. Her initial WBCs were elevated at 11.4 and have now normalized. CBC is basically within normal limits. Chemistries are basically within normal limits. Chest x-ray shows hyperinflation without acute-appearing infiltrate or consolidation. She is to be discharged to [facility]. DISCHARGE PLAN: The patient will be discharged to [facility]. She is to have an evaluation by Physical Therapy. She is to have a regular diet and increase her activity as tolerated. She is to resume her previous medications. We will ask the care home to call Dr. Sullivan's office for a hospital followup appointment. She will be discharged in stable condition. She is to followup at the hospital or with Dr. Sullivan's office for any further problems or complications. DISCHARGE MEDICATIONS: 1. Potassium. 2. Furosemide. 3. Aspirin. 4. Calcium plus Vitamin D. 5. Lisinopril. 6. Simvastatin. 7. Pulmicort Flexhaler. 8. Xanax. 9. Fosamax. 10. Centrum Silver vitamins. 11. Lexapro. 12. Vitamin B12 weekly injections. 13. BuSpar. 14. Xopenex. Dr. Zamorano is the collaborating physician available for consultation. #[id number] [facility]
[2016-05-06] MEDS ORDERED: PANTOPRAZOLE SODIUM IV 40 MG VIAL IV ONE (17:47)
[2016-05-06] MEDS ORDERED: ENOXAPARIN SODIUM 40 MG/0.4 ML SYG SUBCU SCH (21:00)
[2016-05-06] MEDS ORDERED: SIMVASTATIN 20 MG TAB PO SCH (21:00)
[2016-05-07] MEDS ORDERED: ASPIRIN (CHEWABLE) 81 MG TAB PO SCH (09:00)
[2016-05-13] MEDS ORDERED: ALENDRONATE SODIUM TAB 70 MG TAB PO SCH (09:00)
== END 2016-05-06 15:15 ==
LOC: ER 09:25 → INTOOBSV 12:22 → MS 12:22
PROVIDERS: ADMIT Nurse Practitioner Acute Care; ATTEND Nurse Practitioner Acute Care
DX: R07.89 Other chest pain (principal); E86.0 Dehydration; J44.9 Chronic obstructive pulmonary disease, unspecified; I48.2 Chronic atrial fibrillation; F41.9 Anxiety disorder, unspecified; F32.9 Major depressive disorder, single episode, unspecified; N18.9 Chronic kidney disease, unspecified; R06.02 Shortness of breath; I45.10 Unspecified right bundle-branch block; K44.9 Diaphragmatic hernia without obstruction or gangrene; Z66 Do not resuscitate; Z79.82 Long term (current) use of aspirin; Z79.899 Other long term (current) drug therapy; Z88.8 Allergy status to other drugs, medicaments and biological substances; Z87.01 Personal history of pneumonia (recurrent); Z82.61 Family history of arthritis
CPT/HCPCS: 36415; 71010; 80048 ×2; 80061; 81001; 82550 ×3; 82553 ×3; 83880; 84484 ×3; 85025 ×2; 85610; 85730; 93005 ×3; 94664; 94762; 96360; 96361; 96372; 99284; G0378; J1650; J7030

== ENCOUNTER → 2016-05-16 | Outpatient (CLI) | payer MEDICARE | LOC: GT 08:01 | PROVIDERS: ATTEND Family Medicine | DX: E78.5 Hyperlipidemia, unspecified (principal) ==